=== PATIENT | male | born 1960 | race African-American/Black ===

== ENCOUNTER 2017-01-08 19:31 | Emergency (ER) | payer OTHER ==
[~2017-01-08] VITALS: Ht 167.6 cm; Wt 59.0 kg
[~2017-01-08 19:31] MED LIST: ACETAMINOP160 MG/54 PER TUBE; ACETAMINOPHEN160 MG; ALBUTEROL2.5 MG/31 INH; AMBIEN 10 MG TA10 MG PER TUBE; AMBIEN 5 MG TABL5 M1 PO; ASPIR 8181 MG; AUGMENTIN 500-1 EACH PER TUBE; BACLOFEN 10MG T10 MG PER TUBE; BAYER CHEWABLE81 MG PER TUBE; BELSOMRA5 MG PO; BENADRYL25 MG PER TUBE; CELEXA10 MG PER TUBE; CITALOPRAM10 MG/5 ML PER TUBE; CITRATE OF MAG296 ML PER TUBE; DEPAKENE250 MG/5 M PER TUBE; DILANTIN-1125 MG/5 M PER TUBE; DUONEB 2.5-0.5 M3 ML; ENOXAPARIN40 MG/0.1 SUBQ; FUROSEMIDE 20 M20 MG PER TUBE; FUROSEMIDE20 MG/2 ML IV PUSH; HYDROCORTISONE30 G9 TOP; JEVITY 1.5 PER TUBE; KEFLEX250 MG/5 M PER TUBE; KEPPRA 100100 MG/M1 PER TUBE; LEXAPRO5 MG PER TUBE; METAMUCIL PAC1 UDPKT PER TUBE; MIDODRINE HCL2.5 M1 PO; MIRALAX255 GM PER TUBE; OMEPRAZOLE40 MG PER TUBE; OSMOLITE; PAXIL10 MG; PERIDEX 0.12%473 M1 MUCOUS MEM; POLYETHYLENE G500 G3 PER TUBE; PRINIVIL10 MG PER TUBE; PROTONIX 440 MG/VIA2 IV PUSH; QUETIAPINE FUM100 MG; QUETIAPINE FUMA50 MG PER TUBE; ROBITUSSIN100 MG/53 PER TUBE; SILACE50 MG/5 ML PER TUBE; TRAZODONE HCL100 MG PER TUBE; VIMPAT50 MG PER TUBE
== END 2017-01-08 22:29 | disposition home or self-care (01) ==
LOC: ER 19:31
DX: K94.23 Gastrostomy malfunction (principal); F32.9 Major depressive disorder, single episode, unspecified; K21.9 Gastro-esophageal reflux disease without esophagitis; G40.909 Epilepsy, unspecified, not intractable, without status epilepticus; M86.9 Osteomyelitis, unspecified; Z86.73 Personal history of transient ischemic attack (TIA), and cerebral infarction without residual deficits; Z87.891 Personal history of nicotine dependence

== ENCOUNTER 2017-01-16 11:45 | Emergency (ER) | payer OTHER ==
[~2017-01-16] VITALS: Ht 172.7 cm; Wt 65.8 kg
== END 2017-01-16 14:38 | disposition home or self-care (01) ==
LOC: ER 11:45
DX: K94.23 Gastrostomy malfunction (principal); F32.9 Major depressive disorder, single episode, unspecified; K21.9 Gastro-esophageal reflux disease without esophagitis; Z86.73 Personal history of transient ischemic attack (TIA), and cerebral infarction without residual deficits; Z87.09 Personal history of other diseases of the respiratory system; F17.210 Nicotine dependence, cigarettes, uncomplicated

== ENCOUNTER 2017-06-16 13:24 | Emergency (ER) | payer OTHER ==
[~2017-06-16] VITALS: Ht 175.3 cm; Wt 68.0 kg
== END 2017-06-16 16:41 | disposition home or self-care (01) ==
LOC: ER 13:24
DX: T85.528A Displacement of other gastrointestinal prosthetic devices, implants and grafts, initial encounter (principal); Z93.1 Gastrostomy status; F32.9 Major depressive disorder, single episode, unspecified; K21.9 Gastro-esophageal reflux disease without esophagitis; M86.9 Osteomyelitis, unspecified; Z87.891 Personal history of nicotine dependence; Y83.9 Surgical procedure, unspecified as the cause of abnormal reaction of the patient, or of later complication, without mention of misadventure at the time of the procedure; Y92.89 Other specified places as the place of occurrence of the external cause

== ENCOUNTER 2017-07-09 13:23 | Emergency (ER) | payer OTHER ==
[~2017-07-09] VITALS: Ht 175.3 cm; Wt 65.8 kg
[2017-07-09] MEDS ORDERED: ASPIR 8181 MG PER TUBE (13:56)
[2017-07-09] MEDS ORDERED: DUONEB 2.5-0.5 M3 ML INH (13:58)
[2017-07-09] MEDS ORDERED: MIDODRINE HCL2.5 M1 PO (14:00)
[2017-07-09] MEDS ORDERED: TYLENOL325 MG PER TUBE (15:05)
[2017-07-09] MEDS ORDERED: ALBUTEROL2.5 MG/31 INH (15:07)
== END 2017-07-09 18:26 ==
LOC: ER 13:23
DX: J95.03 Malfunction of tracheostomy stoma (principal); F32.9 Major depressive disorder, single episode, unspecified; K21.9 Gastro-esophageal reflux disease without esophagitis; M86.9 Osteomyelitis, unspecified; Z86.73 Personal history of transient ischemic attack (TIA), and cerebral infarction without residual deficits; Z87.891 Personal history of nicotine dependence; Y83.9 Surgical procedure, unspecified as the cause of abnormal reaction of the patient, or of later complication, without mention of misadventure at the time of the procedure; Y92.89 Other specified places as the place of occurrence of the external cause

== ENCOUNTER 2017-10-31 12:09 | Emergency (ER) | payer OTHER ==
[~2017-10-31] VITALS: Ht 170.2 cm; Wt 79.4 kg
[~2017-10-31 12:09] MED LIST changes: +ASPIR 8181 MG PER TUBE; +DUONEB 2.5-0.5 M3 ML INH; +TYLENOL325 MG PER TUBE
[2017-10-31 12:41] LABS: ABSOLUTE NEUTROPHILS 8.6 thou/uL (1.4-8.2); BASOPHILS 0.5 % (0.0-2.0); EOSINOPHILS 0.2 % (0.0-3.0); HEMATOCRIT 38.7 % (42.0-52.0); HEMOGLOBIN 13.1 gm/dL (14.0-18.0); LYMPHOCYTES 5.9 % (24.0-44.0); MCH 31.9 pg (26.0-34.0); MCHC 33.8 g/dL (28.0-37.0); MCV 94.3 fL (80.0-100.0); MONOCYTES 6.3 % (1.0-8.0); PLATELET COUNT 258 thou/uL (150-400); POLYS 87.1 % (36.0-66.0); RDW 13.9 % (10.5-14.5); WBC 9.9 thou/uL (4.0-11.0)
[2017-10-31 12:50] LABS: ANION GAP 4 mmol/L (7-16); BUN 30 mg/dL (7-18); CALCIUM 9.5 mg/dL (8.5-10.1); CHLORIDE 102 mmol/L (98-107); CO2 33 mmol/L (21-32); CREATININE 0.6 mg/dL (0.7-1.3); GLUCOSE 125 mg/dL (74-106); POTASSIUM 4.3 mmol/L (3.5-5.1); SODIUM 139 mmol/L (136-145)
[2017-10-31 12:50] LABS: URINE BILIRUBIN NEGATIVE (Negative); URINE BLOOD TRACE (Negative); URINE CLARITY CLOUDY; URINE COLOR YELLOW; URINE GLUCOSE-RANDOM* NEGATIVE (Negative); URINE KETONES TRACE (Negative); URINE LEUKOCYTES 1+ (Negative); URINE NITRITE POSITIVE (Negative); URINE PROTEIN (DIPSTICK) 1+ (Negative); URINE SPECIFIC GRAVITY <= 1.005 (1.005-1.035); URINE UROBILINOGEN 0.2 E.U./dl (0.2-1.0)
[2017-10-31 13:02] LABS: CASTS None Seen /LPF (None Seen); CRYSTALS None Seen /LPF (None Seen); SQUAMOUS None Seen /LPF (0-3); URINE RBC 3-10 Few /HPF (0-2); URINE WBC 0-5 Rare /HPF (0-5)
[2017-10-31 13:03] LABS: AMORPHOUS PHOSPHATES Many /LPF (None Seen); CALCIUM OXALATE >10 Many /LPF (None Seen)
[2017-10-31 13:04] LABS: ALBUMIN 2.8 g/dL (3.4-5.0); DIRECT BILIRUBIN < 0.1 mg/dL (<0.1-0.3); LIPASE 83 U/L (73-393); SGOT 24 U/L (15-37); SGPT 38 U/L (30-65); TOTAL BILIRUBIN 0.2 mg/dL (<0.1-1.0); TOTAL PROTEIN 7.2 g/dL (6.4-8.2)
[2017-10-31 13:05] LABS: BE(vivo) 4.9 mmol/L (-2 to +3); PCO2 52.4 mmHg (35.0-45.0); sO2 97.4 % (92.0-98.0)
[2017-10-31 17:09] VITALS: BP 125/63
== END 2017-10-31 17:11 ==
LOC: ER 12:09
PROVIDERS: Nurse Practitioner
DX: K59.00 Constipation, unspecified (principal); R05 Cough; F32.9 Major depressive disorder, single episode, unspecified; K21.9 Gastro-esophageal reflux disease without esophagitis; G40.909 Epilepsy, unspecified, not intractable, without status epilepticus; Z87.891 Personal history of nicotine dependence

== ENCOUNTER 2018-04-02 06:04 | Emergency (ER) | payer OTHER ==
[~2018-04-02] VITALS: Ht 170.2 cm; Wt 79.4 kg
[2018-04-02] MEDS ORDERED: VALPROIC A500 MG/10 PER TUBE (06:17)
[2018-04-02] MEDS ORDERED: MILK OF MA2400 MG/10 PER TUBE (06:19)
== END 2018-04-02 08:10 | disposition home or self-care (01) ==
LOC: ER 06:04
DX: J95.09 Other tracheostomy complication (principal); F32.9 Major depressive disorder, single episode, unspecified; K21.9 Gastro-esophageal reflux disease without esophagitis; I63.9 Cerebral infarction, unspecified; M86.9 Osteomyelitis, unspecified; Z87.891 Personal history of nicotine dependence

== ENCOUNTER 2018-05-12 02:21 | Inpatient (IN) | payer OTHER ==
[2018-05-12] VITALS (25 sets, daily range): BP systolic 107–202; BP diastolic 64–112
[~2018-05-12] VITALS: Ht 182.9 cm; Wt 82.7 kg
--- NOTE | ~2018-05-12 | EKG ---
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: FARHAT : 1960 Requested By: Kina Branham Order Number: [id number] MD: Mario Amado Measurements Intervals [place] Rate: 82 P: 48 ME: 177 QRS: 16 QRSD: 84 T: 39 QT: 356 QTc: 416 Interpretive Statements Sinus rhythm Poor R wave progression Compared to ECG 09/13/2016 11:20:56 Repolarization abnormality is less prominent Electronically Signed On 05-13-2018 8:39:16 CDT by Mario Amado [email or web address] <ELECTRONICALLY SIGNED> By: Mario Amado MD, [facility] 05/13/18 0839 1 Mario Amado MD, [facility] /EPI
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
--- NOTE | ~2018-05-12 | O ---
[facility] [place] [address] [place] [address] OPERATIVE REPORT Name: JULIAN MUÑIZ Room #: 245-P ADM IN M.R.#: [id number] Admission: 05/12/18 Attend Phys: Rowdy Pruitt Discharge: Date of : 64 Report #: [id number] THIS REPORT FOR: //name// CC: FAM unknown Rowdy Pruitt Diana Black DATE OF SERVICE: 05/14/2018 TYPE OF PROCEDURE: Diagnostic bronchoscopy. CLINICAL HISTORY: A 57-year-old quadriplegic patient now with difficulty ventilating. Peak air pressures are high. Suspicion for possible mucus plugging. A diagnostic bronchoscopy was performed. DESCRIPTION OF PROCEDURE: Following obtaining consent and risks and benefits being explained to the patient, which include infection, bleeding, pneumothorax, procedure performed in the ICU room. The patient received 2 mg of Versed. Topical lidocaine jelly was used for local anesthetic. He also received aerosolized lidocaine therapy. Of note, the patient has a Shiley #4 trach. Therefore, the bronchoscopy was performed to the upper airway. A flexible fiberoptic bronchoscope was then introduced to the left naris without difficulty. The vocal cords and epiglottis were normal. Proximal trachea was unremarkable. The previously placed tracheostomy tube is in place. I was able to pass the bronchoscope distally without difficulty passing the tracheostomy tube. Distal trachea was normal, ayo was normal. Left mainstem bronchus, left upper lobe and left lower lobe were unremarkable. Right mainstem bronchus, right upper lobe, right middle lobe and right lower lobe were unremarkable. No evidence of mucus plugging seen. No significant secretions noted. The patient tolerated procedure well. No complications. Vital signs and saturation throughout the study were within normal range. No specimens were obtained. No washing was obtained. <ELECTRONICALLY SIGNED> By: Jcarlos Arango MD 05/15/18 1656 0831 0917 Jcarlos Arango MD /nt
--- NOTE | ~2018-05-12 | HC ---
[facility] [address] [place] [address] CONSULTATION Name: JULIAN MUÑIZ Room #: 245-P ADM IN M.R.#: [id number] Admission: 05/12/18 Attend Phys: Rowdy Pruitt Discharge: Date of : 64 Report #: [id number] THIS REPORT FOR: //name// CC: FAM unknown Ish Saldana Diana Black DATE OF SERVICE: 05/12/2018 Infectious Disease Consultation ATTENDING PHYSICIAN: Ish Saldana MD REASON FOR CONSULTATION: Antibiotic management. HISTORY OF PRESENT ILLNESS: The patient is a 57-year-old -Congolese man known to me from previous hospitalization at [facility]. He is admitted with fever of 104 and hypoxemia and possible pneumonia. He receives vancomycin, Zosyn and Levaquin. The patient has chronic tracheostomy and unresponsive currently and unable to provide any information. All information on this patient is gathered from the review of records. PAST MEDICAL HISTORY: C5-C6 quadriplegia. Chronic tracheostomy. Percutaneous gastrostomy. Ileal conduit. Neurogenic bladder. Gastroesophageal reflux. Seizure disorder. Decubitus ulceration, left leg and right thigh. DRUG ALLERGIES: None listed. MEDICATIONS: The patient is currently on treatment with vancomycin 1250 mg IV every 12 hours, levetiracetam per feeding tube, famotidine, subcutaneous heparin, Zosyn 3.375 grams IV every 8 hours, methylprednisolone 40 mg q.i.d. push acetaminophen 500 mg per feeding tube q. 4h p.r.n., glucose Glucagon p.r.n., pressors as needed, Levaquin 750 mg IV single dose. PHYSICAL EXAMINATION: GENERAL: This is a chronically ill-appearing man quit with tracheostomy and ventilator. VITAL SIGNS: Temperature 104, pulse 94, respirations 18, BP 115/65, O2 saturation is 99% on FIO2 of 50%. HEENT: Head normocephalic, atraumatic. Pupils equal. Mouth, unable to examine. NECK: Tracheostomy in place. LUNGS: Few basilar crackles. HEART: S1, S2. No gallop. ABDOMEN: Percutaneous gastrostomy and ileal conduit. Urine mildly turbid. GENITOURINARY AND RECTAL: Deferred. [facility] [address] [place] [address] CONSULTATION Name: JULIAN MUÑIZ Room #: [address] [place] [address] [place] [facility].#: [id number] Admission: 05/12/18 Attend Phys: Rowdy Pruitt Discharge: Date of : 64 Report #: [id number] EXTREMITIES: Decubitus ulceration, left pretibial area and right posterior thigh. NEUROLOGIC: Unable to evaluate, but the patient is quadriplegic. LABORATORY DATA: Revealed the following abnormals: Potassium 3.3, BUN 25, glucose 157, albumin 2.7 g/dL. D-dimer is 1.79. WBC 5000, hemoglobin 12.3, platelets 203,000. Urinalysis pending. ABGs: pH 7.45, pCO2 39, pO2 105, bicarbonate 26.9, lactate elevated 2.91. O2 saturation 98%. is on FiO2 of 50%, tidal volume 500, 5 of PEEP. RADIOLOGY EVALUATION: A chest x-ray revealed tracheostomy, small left pleural effusion, and some infiltrate left base. ASSESSMENT: 1. Severe sepsis. 2. Possible healthcare-associated pneumonia. 3. Rule out urinary tract infection. 4. Malnutrition. 5. Quadriplegia. 6. Seizure disorder. SUGGESTIONS: Recommend continue treatment with vancomycin and Zosyn at current dosing. Decrease dose of steroids. Continue the patient on Levaquin [address] Saldana, thank you for requesting my suggestions in the care of your patient. <ELECTRONICALLY SIGNED> By: Felix Kern MD 05/13/18 0947 0727 [id number] Felix Kern MD /nt
[~2018-05-12 02:21] MED LIST changes: +MILK OF MA2400 MG/10 PER TUBE; +VALPROIC A500 MG/10 PER TUBE
[2018-05-12 03:03] LABS: ABSOLUTE NEUTROPHILS 3.8 thou/uL (1.4-8.2); BASOPHILS 0.5 % (0.0-2.0); EOSINOPHILS 0.9 % (0.0-3.0); HEMATOCRIT 35.9 % (42.0-52.0); HEMOGLOBIN 12.3 gm/dL (14.0-18.0); LYMPHOCYTES 14.6 % (24.0-44.0); MCH 32.8 pg (26.0-34.0); MCHC 34.2 g/dL (28.0-37.0); MCV 95.8 fL (80.0-100.0); MONOCYTES 6.7 % (1.0-8.0); PLATELET COUNT 203 thou/uL (150-400); POLYS 77.3 % (36.0-66.0); RBC 3.75 mil/uL (4.50-6.00); RDW 14.5 % (10.5-14.5)
[2018-05-12 03:08] LABS: BE(vivo) 2.9 mmol/L (-2 to +3); HCO3 26.9 mmol/L (22.0-26.0); PCO2 39.2 mmHg (35.0-45.0); PO2 105.5 mmHg (80.0-100.0); pH 7.454 (7.360-7.450); sO2 98.1 % (92.0-98.0)
[2018-05-12 03:17] LABS: CALCIUM 8.6 mg/dL (8.5-10.1); CREATININE 1.1 mg/dL (0.7-1.3); POTASSIUM 3.3 mmol/L (3.5-5.1)
[2018-05-12 04:01] LABS: ALBUMIN 2.7 g/dL (3.4-5.0); DIRECT BILIRUBIN < 0.1 mg/dL (<0.1-0.3); SGOT 21 U/L (15-37); SGPT 20 U/L (30-65); TOTAL BILIRUBIN 0.2 mg/dL (<0.1-1.0); TOTAL PROTEIN 6.8 g/dL (6.4-8.2)
[2018-05-12 22:09] LABS: URINE BILIRUBIN NEGATIVE (Negative); URINE BLOOD 1+ (Negative); URINE CLARITY CLEAR; URINE COLOR YELLOW; URINE GLUCOSE-RANDOM* NEGATIVE (Negative); URINE KETONES NEGATIVE (Negative); URINE LEUKOCYTES NEGATIVE (Negative); URINE NITRITE NEGATIVE (Negative); URINE PROTEIN (DIPSTICK) 1+ (Negative); URINE SPECIFIC GRAVITY 1.015 (1.005-1.035); URINE UROBILINOGEN 0.2 E.U./dl (0.2-1.0)
[2018-05-12 22:24] LABS: BACTERIA 1-9 Few /HPF (None Seen); CASTS None Seen /LPF (None Seen); CRYSTALS None Seen /LPF (None Seen); MUCUS 0-3 Light strn/LPF (None Seen); SQUAMOUS None Seen /LPF (0-3); URINE RBC 3-10 Few /HPF (0-2); URINE WBC 0-5 Rare /HPF (0-5)
[2018-05-12 22:25] LABS: AMORPHOUS PHOSPHATES Few /LPF (None Seen)
[2018-05-13] VITALS (19 sets, daily range): BP systolic 106–189; BP diastolic 66–112
[2018-05-13 03:31] LABS: CALCIUM 7.8 mg/dL (8.5-10.1); CREATININE 0.8 mg/dL (0.7-1.3); MAGNESIUM 1.8 mg/dL (1.8-2.4); POTASSIUM 3.2 mmol/L (3.5-5.1)
[2018-05-13 03:34] LABS: BASOPHILS 0.4 % (0.0-2.0); HEMATOCRIT 36.4 % (42.0-52.0); HEMOGLOBIN 12.6 gm/dL (14.0-18.0); LYMPHOCYTES 6.3 % (24.0-44.0); MCH 32.7 pg (26.0-34.0); MCHC 34.4 g/dL (28.0-37.0); MONOCYTES 5.2 % (1.0-8.0); PLATELET COUNT 174 thou/uL (150-400); POLYS 88.1 % (36.0-66.0); RBC 3.84 mil/uL (4.50-6.00); WBC 9.1 thou/uL (4.0-11.0)
[2018-05-13 10:01] LABS: CALCIUM 8.1 mg/dL (8.5-10.1); CREATININE 0.8 mg/dL (0.7-1.3)
[2018-05-13 10:04] LABS: POTASSIUM 4.4 mmol/L (3.5-5.1)
[2018-05-14] VITALS (16 sets, daily range): BP systolic 103–178; BP diastolic 65–136
[2018-05-14 05:21] LABS: CALCIUM 7.8 mg/dL (8.5-10.1); CREATININE 0.7 mg/dL (0.7-1.3); POTASSIUM 3.6 mmol/L (3.5-5.1)
[2018-05-14 05:26] LABS: ABSOLUTE NEUTROPHILS 6.6 thou/uL (1.4-8.2); BASOPHILS 0.1 % (0.0-2.0); HEMATOCRIT 34.1 % (42.0-52.0); HEMOGLOBIN 11.6 gm/dL (14.0-18.0); LYMPHOCYTES 9.5 % (24.0-44.0); MCH 32.5 pg (26.0-34.0); MCV 95.4 fL (80.0-100.0); MONOCYTES 6.3 % (1.0-8.0); PLATELET COUNT 180 thou/uL (150-400); POLYS 84.1 % (36.0-66.0); RBC 3.58 mil/uL (4.50-6.00); RDW 14.7 % (10.5-14.5); WBC 7.9 thou/uL (4.0-11.0)
[2018-05-15] VITALS (21 sets, daily range): BP systolic 102–192; BP diastolic 60–121
[2018-05-15 05:49] LABS: CALCIUM 8.3 mg/dL (8.5-10.1)
[2018-05-15 05:52] LABS: HEMATOCRIT 35.7 % (42.0-52.0); HEMOGLOBIN 12.1 gm/dL (14.0-18.0); MCH 32.6 pg (26.0-34.0); RBC 3.72 mil/uL (4.50-6.00); RDW 14.6 % (10.5-14.5); WBC 6.8 thou/uL (4.0-11.0)
[2018-05-16] VITALS (11 sets, daily range): BP systolic 94–244; BP diastolic 55–168
[2018-05-16 08:06] LABS: CALCIUM 8.4 mg/dL (8.5-10.1)
[2018-05-16 08:09] LABS: POTASSIUM 2.9 mmol/L (3.5-5.1)
[2018-05-16] MEDS ORDERED: ZOSYN 3.3753.375 GM IV (11:27)
[2018-05-16] MEDS ORDERED: CARDIZEM30 MG PER TUBE (11:28)
[2018-05-16] MEDS ORDERED: VANCOMYCIN1.25 GM/22 IV (11:28)
== END 2018-05-16 13:15 | DRG 870 ==
LOC: ER 02:21 → ICU 04:17 → EROBS 04:17 → ICU 05:44
PROVIDERS: Emergency Medicine; Internal Medicine; Internal Medicine Pulmonary Disease; Nurse Practitioner
DX: A41.9 Sepsis, unspecified organism (principal); J18.9 Pneumonia, unspecified organism; R65.21 Severe sepsis with septic shock; G82.50 Quadriplegia, unspecified; J96.21 Acute and chronic respiratory failure with hypoxia; E46 Unspecified protein-calorie malnutrition; J95.03 Malfunction of tracheostomy stoma; G82.20 Paraplegia, unspecified; Z99.11 Dependence on respirator [ventilator] status; F32.9 Major depressive disorder, single episode, unspecified; G47.00 Insomnia, unspecified; K21.9 Gastro-esophageal reflux disease without esophagitis; G40.909 Epilepsy, unspecified, not intractable, without status epilepticus; Y83.8 Other surgical procedures as the cause of abnormal reaction of the patient, or of later complication, without mention of misadventure at the time of the procedure; E87.6 Hypokalemia; N31.9 Neuromuscular dysfunction of bladder, unspecified; F45.8 Other somatoform disorders; T17.990A Other foreign object in respiratory tract, part unspecified in causing asphyxiation, initial encounter; L89.899 Pressure ulcer of other site, unspecified stage; Z87.828 Personal history of other (healed) physical injury and trauma; Z86.73 Personal history of transient ischemic attack (TIA), and cerebral infarction without residual deficits; Z87.891 Personal history of nicotine dependence; Z68.24 Body mass index [BMI] 24.0-24.9, adult; Z79.82 Long term (current) use of aspirin; Z79.899 Other long term (current) drug therapy; Z82.0 Family history of epilepsy and other diseases of the nervous system; X58.XXXA Exposure to other specified factors, initial encounter; Y93.89 Activity, other specified; Y92.89 Other specified places as the place of occurrence of the external cause; Y99.8 Other external cause status
CPT/HCPCS: 10078; 27000; 50101; 50386; 50403; 50517; 56525; 62110; 62900; 65131

== ENCOUNTER 2018-10-22 08:53 | Inpatient (IN) | payer OTHER ==
[~2018-10-22] VITALS: Ht 170.2 cm; Wt 93.1 kg
[2018-10-22] VITALS (41 sets, daily range): BP systolic 70–186; BP diastolic 32–106
[~2018-10-22 08:53] MED LIST changes: +CARDIZEM30 MG PER TUBE; +VANCOMYCIN1.25 GM/22 IV; +ZOSYN 3.3753.375 GM IV
[2018-10-22 09:30] LABS: ABSOLUTE NEUTROPHILS 7.1 thou/uL (1.4-8.2); BASOPHILS 0.3 % (0.0-2.0); HEMATOCRIT 41.3 % (42.0-52.0); HEMOGLOBIN 13.9 gm/dL (14.0-18.0); MCH 31.4 pg (26.0-34.0); MCHC 33.8 g/dL (28.0-37.0); MCV 93.1 fL (80.0-100.0); MONOCYTES 6.4 % (1.0-8.0); PLATELET COUNT 304 thou/uL (150-400); POLYS 83.3 % (36.0-66.0); RBC 4.43 mil/uL (4.50-6.00); RDW 13.9 % (10.5-14.5); WBC 8.5 thou/uL (4.0-11.0)
[2018-10-22 09:41] LABS: APTT 28.8 Seconds (24.5-32.8); CALCIUM 9.6 mg/dL (8.5-10.1); POTASSIUM 3.7 mmol/L (3.5-5.1)
[2018-10-22 14:14] LABS: HEMATOCRIT 35.8 % (42.0-52.0); HEMOGLOBIN 12.1 gm/dL (14.0-18.0)
--- NOTE | 2018-10-22 16:00 | NUR ---
DR. CALIX CALLED RE HYPOTENSION, STOOLING. GENERAL UPDATE GIVEN. ORDERS GIVEN. WILL START LEVOPHED AND KEEP MAP >60. UNABLE TO SEND CDIFF DUE TO YES ANSWERS ON [facility]ARE.
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
--- NOTE | 2018-10-22 18:33 | NUR ---
END OF SHIFT NOTE. PT ADMITTED TO ICU S/P UPPER GI BLEED. POSSIBLE ASPIRATION. PT IS QUAD. WOUND PHOTO TAKEN. LARGE BM X 2 SEMI FORMED. COARSE BS. SUCTIONED FREQUENTLY. PT NON VERBAL CONSENT FOR EGD AND BLOOD SIGNED.
--- NOTE | 2018-10-22 19:06 | NUR ---
DR. CALIX CALLED RE PT INCREASED SECTRIONS AND IS NOT ON ANY ANTIBIOTICS OR RT TREATMENTS. ORDERS GIVEN. DR. DOWNS CONSULTED.
[2018-10-22 19:16] LABS: HCO3 31.9 mmol/L (22.0-26.0); PO2 106.7 mmHg (80.0-100.0)
[2018-10-22 19:18] LABS: PCO2 71.4 mmHg (35.0-45.0)
[2018-10-22 19:19] LABS: pH 7.268 (7.360-7.450)
[2018-10-22 22:26] LABS: HEMATOCRIT 35.6 % (42.0-52.0); HEMOGLOBIN 11.9 gm/dL (14.0-18.0)
[2018-10-22 22:47] LABS: BE(vivo) 4.4 mmol/L (-2 to +3); HCO3 33.2 mmol/L (22.0-26.0); PCO2 71.8 mmHg (35.0-45.0); PO2 101.6 mmHg (80.0-100.0); sO2 96.7 % (92.0-98.0)
[2018-10-22 22:48] LABS: pH 7.283 (7.360-7.450)
--- NOTE | 2018-10-22 23:31 | NUR ---
GCS 11. OPENS EYES SPONTANEOUSLY. MOSTLY NONVERBAL. NODS/SHAKES HEAD, OCCASSIONALLY MOUTHS WORDS. RUE GROSS MOTOR MOVEMENT. RLE CONTRACTED. DECREASED ROM IN ALL EXTREMITIES. FOLLOWS COMMANDS ABLE. DENIES PAIN. SINUS RHYTHM ON MONITOR. TRACH PRESENT ON ADMISSION. T TUBE AT 50% UNTIL 2300. PT THEN PLACED ON BIPAP. PT HAS LARGE VOLUME THICK WHITE SPUTUM, REQUIRING FREQUENT SUCTION. PT NPO. PEG TUBE NOT IN USE. MULTIPLE LARGE, SEMI-LIQUID BOWEL MOVEMENTS. UROSTOMY PRESENT ON ADMIT. CLEAR, DARK YELLOW URINE. PARTIALLY HEALED WOUNDS TO LEFT INNER THIGH AND LEFT LOWER LEG. WOUND CARE CONSULTED. VITAL SIGNS AND ASSESSMENTS DOCUMENTED. WILL CONTINUE TO MONITOR.
[2018-10-23] VITALS (106 sets, daily range): BP systolic 57–178; BP diastolic 28–95
[2018-10-23 04:49] LABS: HEMATOCRIT 33.1 % (42.0-52.0); HEMOGLOBIN 10.9 gm/dL (14.0-18.0); MCH 31.2 pg (26.0-34.0); MCHC 32.8 g/dL (28.0-37.0); MCV 95.1 fL (80.0-100.0); RBC 3.48 mil/uL (4.50-6.00); RDW 13.6 % (10.5-14.5); WBC 10.4 thou/uL (4.0-11.0)
[2018-10-23 04:51] LABS: CALCIUM 7.7 mg/dL (8.5-10.1); CREATININE 0.6 mg/dL (0.7-1.3); POTASSIUM 3.6 mmol/L (3.5-5.1)
[2018-10-23 05:44] LABS: BE(vivo) 3.4 mmol/L (-2 to +3); HCO3 32.3 mmol/L (22.0-26.0); PO2 95.9 mmHg (80.0-100.0)
[2018-10-23 05:45] LABS: pH 7.264 (7.360-7.450)
--- NOTE | 2018-10-23 09:11 | NUR ---
When able to resume enteral nutrition recommend Vital AF 1.2 goal of 65ml/hr.
[2018-10-23 10:46] LABS: CLARITY TURBID; COLOR STRAW; SOURCE BRONCH WASH; TOTAL VOLUME 10 mL
--- NOTE | 2018-10-23 10:59 | NUR ---
WOUND CARE ASSESSMENT; HEAD TO TOE ASSESSMENT;-1 A WOUND IDENTIFIED TO THE GLUTEAL CLEFT ; A LINIEAR FISSURE, NO DRAINAGE NOTED, NO S/S OF INFECTION. 2- ANOTHER LINIEAR FISSURE TO THE LEFT INNER THIGH WITH NO VISABLE DRAINAGE OR S/S OF INFECTION. NO OTHER AREAS OF CONCERN. RECOMMENDATIONS; APPLY BARRIER CREAM DAILY/PRN RN PRESENT
[2018-10-23 12:53] LABS: BF NUCLEATED CELLS 31510; BF RBC 14077
--- NOTE | 2018-10-23 13:49 | NUR ---
PT. CURRENTLY RESIDES AT [facility] FAXED CLINICAL UPDATE TO FACILITY AND SPOKE WITH WAGNER IN ADM. SHE RECEIVED UPDATE. DCP TO FOLLOW.
[2018-10-23 16:27] LABS: HCO3 25.7 mmol/L (22.0-26.0); PCO2 52.1 mmHg (35.0-45.0); PO2 73.5 mmHg (80.0-100.0); sO2 93.3 % (92.0-98.0)
[2018-10-23 16:28] LABS: pH 7.311 (7.360-7.450)
--- NOTE | 2018-10-23 18:23 | NUR ---
PT HAS SHAHLA, DR. DOWNS INFORMED. AWAITING ORDERS.
--- NOTE | 2018-10-23 18:25 | NUR ---
END OF S HIFT NOTE. PT HAD BRONCH WITH TRACH EXCHANGE THIS AM. EGD IN AFTERNOON WITH NEW PEG. TUBE FEEDINGS STARTED. LEVOPHED WEANED OFF. REMAINS ON PROTONIX GTT.
[2018-10-23 19:46] LABS: BF MACROPHAGE 0; BF NEUTROPHILS 93
--- NOTE | 2018-10-23 22:17 | P ---
[facility] [address] [place] [address] PROCEDURE REPORT Name: JULIAN MUÑIZ Room #: 243-P [facility] IN M.R.#: [id number] Admission: 10/22/18 Attend Phys: Demetrio Wallace MD Discharge: Date of : 64 Report #: [id number] THIS REPORT FOR: //name// CC: Demetrio Wallace MD [facility] DATE OF SERVICE: 10/23/2018 NAME OF PROCEDURE: EGD with PEG removal and new PEG placement. He is a patient of Dr. Demetrio Wallace. INDICATION FOR PROCEDURE: The patient has a balloon PEG tube that was a replacement PEG that had been placed. The balloon, it was blown up in the duodenum causing a small-bowel obstruction and we are replacing the balloon tube with a regular PEG tube, so that there is no danger of small-bowel obstruction from the PEG tube. Informed consent for this procedure was obtained prior to the administration of any medication. The risks of the procedure, which include bleeding, perforation, infection, complications of sedation and the possibility I could miss something have been explained to the patient and DPOA and consent was obtained. The risks include bleeding, perforation, infection, complications of sedation and the possibility I could miss something, although this is certainly a limited list of complications. Conscious sedation was provided with fentanyl 50 mcg and 4 mg of Versed slowly given before and during this procedure. DESCRIPTION OF PROCEDURE: The Olympus upper videoscope was introduced through the upper esophageal sphincter and advanced under direct visualization to the third portion of the duodenum. Findings were noted on withdrawal of the scope. The visualized portions of the duodenum appeared normal. Pylorus, normal mucosa. In the antrum of the stomach, there was a large balloon PEG tube seen on the anterior wall of the stomach. The antrum itself appeared normal except for two small red dots in the prepyloric area. Body, normal mucosa. Cardia and fundus, normal mucosa. Retroflex view did not reveal any abnormalities. The scope was withdrawn up into the esophagus. There was a severely ulcerated esophagus noted. Then, the scope was advanced down into the stomach again. The balloon was deflated on the PEG tube and the old PEG tube was removed manually. Then, a guidewire was advanced through the previous PEG tube ostomy site and grasped endoscopically with a snare and pulled up through the patient's mouth. Then, a #20 PEG was tied onto the guidewire and the PEG was pulled down through the patient's mouth, esophagus and stomach and out through the anterior gastric and anterior abdominal wall and anchored into position. Then, the appropriate [facility] [address] [place] [address] PROCEDURE REPORT Name: JULIAN MUÑIZ Room #: [facility] IN M.R.#: [id number] Admission: 10/22/18 Attend Phys: Demetrio Wallace MD Discharge: Date of : 64 Report #: [id number] bumpers externally were placed and a clip on the tube to stop the flow of tube feeding or gastric contents if needed. Then, the Olympus upper videoscope was reintroduced through the upper esophageal sphincter and advanced down to the stomach again. The PEG bumper was seen in appropriate position on the antral wall. It was not bleeding. There was no external or internal blood loss. The scope was then withdrawn. The patient went to the recovery area in stable condition. He tolerated the procedure well. IMPRESSION: 1. Successful replacement of an old balloon PEG with a bumper PEG as above. 2. Severe ulcerative esophagitis. RECOMMENDATIONS: For him to continue the proton pump inhibitors IV for now. We will start tube feedings at approximately 30 mL an hour, Jevity 1.5 and wait for the dietitian to make recommendations about his feedings tomorrow. Thank you very much once again for allowing me to participate in his care, Dr. Wallace. <ELECTRONICALLY SIGNED> By: Isha Lindo DO 10/23/18 2217 1534 1551 Isha Lindo DO /nt
[2018-10-24] VITALS (45 sets, daily range): BP systolic 90–130; BP diastolic 39–75
[2018-10-24] MEDS ORDERED: CELEXA10 MG PO (00:41)
--- NOTE | 2018-10-24 02:37 | NUR ---
ASSUMED CARE OF PT AT 2315. PT DROWSY DURING INITIAL ASSESSMENT, BUT WHEN THE PT IS TOUCHED, HE HAS SPASMS. AFTER BEING REPOSITIONED, PT CONTINUED TO HAVE SPASMS AND APPEARED TO BE IN PAIN (VERY TENSE, GRIMACING, INCREASED RR). GIVEN MORPHINE X1. SPOKE WITH FLAKO REDD NP ABOUT RESTARTING PT'S HOME MEDS, WHICH INCLUDE BACLOFEN, KEPRA, AND VALPROATE. MORPHINE HELPED SOME, BUT PT IS STILL TENSE AND HAS SPASMS INTERMITTENTLY. WILL CONTINUE TO MONITOR.
[2018-10-24 05:57] LABS: ABSOLUTE NEUTROPHILS 4.9 thou/uL (1.4-8.2); BASOPHILS 0.3 % (0.0-2.0); EOSINOPHILS 3.1 % (0.0-3.0); HEMATOCRIT 30.3 % (42.0-52.0); HEMOGLOBIN 10.2 gm/dL (14.0-18.0); LYMPHOCYTES 13.3 % (24.0-44.0); MCHC 33.6 g/dL (28.0-37.0); MCV 95.3 fL (80.0-100.0); PLATELET COUNT 192 thou/uL (150-400); POLYS 74.3 % (36.0-66.0); RBC 3.18 mil/uL (4.50-6.00); RDW 14.4 % (10.5-14.5); WBC 6.6 thou/uL (4.0-11.0)
[2018-10-24 06:12] LABS: CALCIUM 8.1 mg/dL (8.5-10.1); CREATININE 0.7 mg/dL (0.7-1.3); POTASSIUM 3.5 mmol/L (3.5-5.1)
[2018-10-24 08:23] LABS: BE(vivo) -0.2 mmol/L (-2 to +3); HCO3 27.4 mmol/L (22.0-26.0); PO2 139.7 mmHg (80.0-100.0); pH 7.284 (7.360-7.450); sO2 98.4 % (92.0-98.0)
--- NOTE | 2018-10-24 15:40 | NUR ---
CM ASSESSMENT: CASE OPENED FOR DC PLANNING. CLINICAL INFO REVIEWED. PT ADMITS FROM LTC AT [facility] WITH UGI BLEED AND RESP FAILURE. HX OF QUAD AND ESTABLISHED TRACH. CURRENTLY ON BIPAP AVAPS MODE. PEG REPLACED BY GI. SPOKE WITH PT'S MOM ALEXANDRO BY PHONE. DISCUUSED POSSIBLE LTAC STAY AND SHE IS AGREEABLE IF THAT IS RECOMMENDATION AND CHOOSES [facility] (PT HAD [facility] 04/2018). ALEXANDRO'S INTENDS PT TO ULTIMATELY RETURN TO LTC FACILITY WHEN MEDICALLY STABLE. DC PLANNED FAXED UPDATED AND SPOKE STEPHANIE EDWARD IN ADMISSIONS AT [facility].
--- NOTE | 2018-10-24 18:23 | NUR ---
PT DROWSY TODAY. WILL OPEN EYES TO COMMAND, NOD TO YES/NO QUESTIONS, AND MOUTH WORDS TO COMMUNICATE. TOLERATING TUBE FEEDING WELL WITH MINIMAL RESIDUAL. VSS. ABG'S DRAWN THIS AM AND RESULTS GIVEN TO DR DOWNS. REMAINS ON AVAP PER TRACH. LUNGS VERY COARSE. SUCTIONING MODERATE AMOUNT OF THICK BURGER SPUTUM FROM TRACH. PROTONIX GTT DISCONTINUED TODAY AND STARTED ON PPI PER TUBE. COMPLAINING OF HEADACHE THIS AM. GIVEN TYLENOL WITH COMPLETE RELIEF OF PAIN. TURNED Q2H. ORAL CARE DONE Q2 H. SPOKE WITH PT'S MOTHER AND UPDATED HER THIS AM. WILL CONTINUE TO MONITOR PATIENT.
[2018-10-25] VITALS (50 sets, daily range): BP systolic 94–184; BP diastolic 42–109
[2018-10-25 05:26] LABS: BE(vivo) -0.1 mmol/L (-2 to +3); HCO3 26.1 mmol/L (22.0-26.0); PCO2 49.2 mmHg (35.0-45.0); PO2 42.9 mmHg (80.0-100.0); pH 7.342 (7.360-7.450); sO2 75.4 % (92.0-98.0)
[2018-10-25 05:34] LABS: ABSOLUTE NEUTROPHILS 3.7 thou/uL (1.4-8.2); BASOPHILS 0.4 % (0.0-2.0); EOSINOPHILS 4.8 % (0.0-3.0); HEMATOCRIT 28.1 % (42.0-52.0); HEMOGLOBIN 9.4 gm/dL (14.0-18.0); LYMPHOCYTES 21.2 % (24.0-44.0); MCH 31.7 pg (26.0-34.0); MCHC 33.5 g/dL (28.0-37.0); MCV 94.6 fL (80.0-100.0); MONOCYTES 9.1 % (1.0-8.0); PLATELET COUNT 192 thou/uL (150-400); POLYS 64.5 % (36.0-66.0); RBC 2.97 mil/uL (4.50-6.00); RDW 14.3 % (10.5-14.5); WBC 5.7 thou/uL (4.0-11.0)
[2018-10-25 05:58] LABS: CALCIUM 7.9 mg/dL (8.5-10.1); CREATININE 0.6 mg/dL (0.7-1.3); POTASSIUM 3.3 mmol/L (3.5-5.1)
--- NOTE | 2018-10-25 07:00 | NUR ---
ASSUMED CARE OF PT AT 1900. PT AWAKE, BUT DROWSY. DENIES PAIN, BUT C/O ITCHING ON RIGHT SIDE OF NECK BY CENTRAL LINE. ORDER FOR BENADRYL OBTAINED FROM FLAKO REDD NP. BENADRYL GIVEN X1. UPON INITIAL ASSESSMENT, PT'S ABD APPEARED TO BE MORE DISTENDED AND FIRM THAN THE PRIOR NIGHT. TUBE FEEDING WAS STOPPED AT THAT TIME. PT DENIED ABD PAIN AND NAUSEA. WHEN REASSESSED AT KS, PT'S ABD APPEARED SOMEWHAT IMPROVED, YET STILL DISTENDED. BOWEL SOUNDS WERE HYPERACTIVE AT THAT TIME AND PT WAS PASSING FLATUS. TF RESTARTED. WHEN REPOSITIONING THE PT AT 0200, PT'S ABD APPEARED MORE DISTENDED-SIMILAR TO FIRST ASSESSMENT. TF WAS STOPPED AGAIN. DR. DOWNS WAS IN THE ICU AND WAS NOTIFIED OF THE DISTENTION AND WAS ASKED TO ORDER A KUB. A KUB AND CXR WERE ORDERED. THERE WAS ALSO A CONCERN OF SUBQ AIR IN LOWER LEFT SIDE OF NECK, BUT CXR REPORT DID NOT MENTION ANY SUBQ AIR. THE KUB SHOWED NO OBSTRUCTION. PT STILL DENIED ABD PAIN AND NAUSEA. TF RESUMED AT 0630. 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 ALL THIS WAS COMMUNICATED TO THE DAYSHIFT RN SO THAT IT COULD BE LOOKED INTO FURTHER. CXR ALSO REVEALED THAT THE CENTRAL LINE WAS OUT OF PLACE AND REQUIRES REPOSITIONING. MESSAGE LEFT WITH IV TEAM REGARDING THIS. ASSESSMENTS AND VITALS DOCUMENTED. WILL CONTINUE TO MONITOR.
--- NOTE | 2018-10-25 08:00 | NUR ---
PT ABD VERY FIRM, TUBE FEEDING STOPPED. PT MADE NPO. DR. JUANITA MAYA.
--- NOTE | 2018-10-25 09:16 | NUR ---
PAGED DR. GRANT AGAIN.
--- NOTE | 2018-10-25 11:11 | PATH ---
[facility] [address] [place] [address] PATHOLOGY RPT PROCEDURE Name: JULIAN MUÑIZ Room #: 243-P ADM IN M.R.#: [id number] Admission: 10/22/18 Date of : 64 Discharge: Report #: [id number] Path Case #: [id number] Note [facility] Accession Number: [id number] TESTS RESULT FLAG UNITS REF RANGE LAB Clinician Provided Cytology Information No. of containers..01 Other (Miscellaneous) Source: 01 BRONCHIAL WASHING DIAGNOSIS: 02 BRONCHIAL WASHING NEGATIVE FOR MALIGNANT CELLS. REACTIVE BRONCHIAL CELLS ARE PRESENT. PULMONARY MACROPHAGES (DUST CELLS) ARE PRESENT. REACTIVE SQUAMOUS CELLS ARE PRESENT. MARKED ACUTE INFLAMMATION. Signed out by: Mar Damon MD, Pathologist NPI- [id number] Performed by: Georgie Jason, Ply Bander ([facility]) Gross description: 01 7ML, COLORLESS, CLOUDY /LCS FLAG LEGEND: L-Low Normal,H-High Normal,LL-Alert Low,HH-Alert High <-Panic Low,>-Panic High,A-Abnormal,AA-Critical Abnormal Performed at: [address] [place] [address] Christopher Benjamin MD, [address] [address] Mar Damon MD, Specimen Comment: A courtesy copy of this report has been sent to Specimen Comment: [phone]. Specimen Comment: Report sent to Specimen Comment: A duplicate report has been generated due to demographic updates. Performed at: [address], [place], [place] [id number] MD Christopher Benjamin MD Phone: [phone]
--- NOTE | 2018-10-25 16:02 | NUR ---
POSSIBLE DC TO LT[facility] SAT OR SUN. GILMA FROM [facility] HERE TO [facility] AND PT ACCEPTED FOR ADMIT AND CAN COME SAT OR SUN IF READY. CONTACT EMILIANO FROM [facility] AT [phone] TO COORDINATE DC. # FOR REPORT [phone] AND FAX DC ORDERS TO [phone]. CHART COPIED. SPOKE WITH PT'S MOTHER ALEXANDRO ABOUT POSSIBLE W/E DC TO [facility] AND SHE IS AGREEBLE AND [facility] PHONE # PROVIDED TO HER. PT WILL NEED TO TRAVEL BY AMBULANCE.
--- NOTE | 2018-10-25 18:24 | NUR ---
END OF SHIFT NOTE. PT TO GO TO [facility] THIS WEEKEND. VSS. SMALL AMT OUT OF RECTAL TUBE. VSS NO COMLAINTS OF PAIN. REMAINS PM APRV ON BIPAP AT 60%. LUNGS LESS COARSE TODAY.
[2018-10-26] VITALS (42 sets, daily range): BP systolic 99–202; BP diastolic 50–120
[2018-10-26 04:55] LABS: BASOPHILS 0.6 % (0.0-2.0); EOSINOPHILS 3.9 % (0.0-3.0); HEMATOCRIT 29.1 % (42.0-52.0); HEMOGLOBIN 9.8 gm/dL (14.0-18.0); LYMPHOCYTES 17.9 % (24.0-44.0); MCH 31.1 pg (26.0-34.0); MCHC 33.5 g/dL (28.0-37.0); MCV 93.1 fL (80.0-100.0); MONOCYTES 5.4 % (1.0-8.0); PLATELET COUNT 191 thou/uL (150-400); POLYS 72.2 % (36.0-66.0); RBC 3.13 mil/uL (4.50-6.00); RDW 14.2 % (10.5-14.5)
[2018-10-26 05:09] LABS: CALCIUM 8.2 mg/dL (8.5-10.1); CREATININE 0.6 mg/dL (0.7-1.3); POTASSIUM 3.8 mmol/L (3.5-5.1)
--- NOTE | 2018-10-26 07:00 | NUR ---
ASSUMED CARE OF PT AT 1900. NO CHANGE IN PT CONDITION OVERNIGHT. PT CALM AND COOPERATIVE, DENIED ANY PAIN. POTASSIUM RECHECKED AND WITHIN NORMAL RANGE, NO FURTHER REPLACEMENT WAS REQUIRED. PT'S ABD REMAINS DISTENDED AND FIRM. PT HAS HYPERACTIVE BOWEL SOUNDS AND DENIES ANY NAUSEA OR ABD PAIN/DISCOMFORT. FECAL MANAGMENT SYSTEM HAD 300 CC OF LIQUID STOOL AND BAG FILLED WITH AIR/GAS. PT TO D/C TO [facility] THIS WEEKEND. ASSESSMENTS AND VITALS DOCUMENTED. WILL CONTINUE TO MONITOR.
--- NOTE | 2018-10-26 15:41 | NUR ---
PT CONT ON AVAPS MODE ON BIPAP. IV FLUIDS D/C'D. VSS. PLAN FOR POSSIBLE D/C TOMORROW TO [facility]
[2018-10-27] VITALS (22 sets, daily range): BP systolic 88–151; BP diastolic 43–90
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
[2018-10-27 05:15] LABS: HEMOGLOBIN 10.1 gm/dL (14.0-18.0); MCH 31.4 pg (26.0-34.0); MCHC 33.6 g/dL (28.0-37.0); MCV 93.4 fL (80.0-100.0); RBC 3.21 mil/uL (4.50-6.00); RDW 14.3 % (10.5-14.5); WBC 7.4 thou/uL (4.0-11.0)
[2018-10-27 05:21] LABS: CALCIUM 8.6 mg/dL (8.5-10.1); CREATININE 0.7 mg/dL (0.7-1.3); MAGNESIUM 1.7 mg/dL (1.8-2.4); POTASSIUM 3.6 mmol/L (3.5-5.1)
[2018-10-27] MEDS ORDERED: ACCUNEB SO1.25 MG/1 INH (10:00)
[2018-10-27] MEDS ORDERED: PULMICORT0.5 MG/21 INH (10:00)
[2018-10-27] MEDS ORDERED: IPRAT-ALBUT 0.5-3 ML INH (10:00)
[2018-10-27] MEDS ORDERED: OMEPRAZOLE 20 M20 M1 PER TUBE (10:00)
[2018-10-27] MEDS ORDERED: MORPHINE SU4 MG/1 M1 IV PUSH (10:00)
[2018-10-27] MEDS ORDERED: BANOPHEN12.5 MG/1 PER TUBE (10:00)
[2018-10-27] MEDS ORDERED: WATER10 ML INJECTION (10:00)
[2018-10-27] MEDS ORDERED: CATHFLO ACT2 MG/VIA1 IV PUSH (10:00)
[2018-10-27] MEDS ORDERED: BACLOFEN 10MG T10 MG PER TUBE (10:00)
[2018-10-27] MEDS ORDERED: ACETYLCYST200 MG/1 M INH (10:00)
[2018-10-27] MEDS ORDERED: CARDIZEM30 MG PER TUBE (10:00)
[2018-10-27] MEDS ORDERED: ONDANSETRON HCL4 M1 IV PUSH (10:00)
--- NOTE | 2018-10-27 13:51 | NUR ---
PT TRANSFERRING TO [facility] TODAY. TRANSPORT TIME OF 1400. REPORT CALLED TO PRACHI AT [facility].
--- NOTE | 2018-10-27 15:19 | NUR ---
pt transfered [facility] via ambulance. No belongings. VSS.
--- NOTE | 2018-10-27 16:13 | NUR ---
ASSUMED CARE AT 0700. PT ALERT AND ORIENTATED. PT HAS TRACH AND IS CURRENTLY NEEDING VENTILATOR SUPPORT IN AVAPS MODE. PT NODS HEAD YES OR NO TO SIMPLE QUESTIONS. PT IS QUADRAPELEGIC. PT IS A Q2 HOUR TURN. PT HAS TUBE FEEDING GOING AT 65CC/HR WITH ZERO RESIDUALS. PT HAS UROSTOMY THAT HAS BAIN BAG ATTACHED TO DEPENDENT DRAINAGE. PT HAS FECAL MANAGEMENT TUBE IN PLACE FOR LIQUID BROWN STOOLS. PT HAD FULL BATH AT SHIFT CHANGE.
== END 2018-10-27 15:10 | DRG 177 ==
LOC: ER 08:53 → ICU 11:19 → EROBS 11:19 → ICU 14:25
PROVIDERS: Emergency Medicine; Internal Medicine; Internal Medicine Pulmonary Disease; Nurse Practitioner; Pediatrics; ADMIT Hospitalist
PROC: 5A09357 Assistance with Respiratory Ventilation, Less than 24 Consecutive Hours, Continuous Positive Airway Pressure (ICD-10-PCS; principal; 2018-10-22)
PROC: 0B9F8ZX Drainage of Right Lower Lung Lobe, Via Natural or Artificial Opening Endoscopic, Diagnostic (ICD-10-PCS; 2018-10-23)
PROC: 5A09357 Assistance with Respiratory Ventilation, Less than 24 Consecutive Hours, Continuous Positive Airway Pressure (ICD-10-PCS; 2018-10-23)
PROC: 0D20XUZ Change Feeding Device in Upper Intestinal Tract, External Approach (ICD-10-PCS; 2018-10-23)
PROC: 0DJ08ZZ Inspection of Upper Intestinal Tract, Via Natural or Artificial Opening Endoscopic (ICD-10-PCS; 2018-10-23)
PROC: 5A09357 Assistance with Respiratory Ventilation, Less than 24 Consecutive Hours, Continuous Positive Airway Pressure (ICD-10-PCS; 2018-10-24)
PROC: 5A09357 Assistance with Respiratory Ventilation, Less than 24 Consecutive Hours, Continuous Positive Airway Pressure (ICD-10-PCS; 2018-10-25)
PROC: 5A09357 Assistance with Respiratory Ventilation, Less than 24 Consecutive Hours, Continuous Positive Airway Pressure (ICD-10-PCS; 2018-10-26)
PROC: 5A09357 Assistance with Respiratory Ventilation, Less than 24 Consecutive Hours, Continuous Positive Airway Pressure (ICD-10-PCS; 2018-10-27)
DX: J69.0 Pneumonitis due to inhalation of food and vomit (principal); G82.50 Quadriplegia, unspecified; J96.21 Acute and chronic respiratory failure with hypoxia; J96.22 Acute and chronic respiratory failure with hypercapnia; K22.11 Ulcer of esophagus with bleeding; R57.8 Other shock; K94.23 Gastrostomy malfunction; K31.1 Adult hypertrophic pyloric stenosis; D62 Acute posthemorrhagic anemia; J90 Pleural effusion, not elsewhere classified; G93.40 Encephalopathy, unspecified; G47.00 Insomnia, unspecified; K21.9 Gastro-esophageal reflux disease without esophagitis; I95.89 Other hypotension; R13.10 Dysphagia, unspecified; D64.9 Anemia, unspecified; R14.0 Abdominal distension (gaseous); F32.9 Major depressive disorder, single episode, unspecified; G40.909 Epilepsy, unspecified, not intractable, without status epilepticus; R33.9 Retention of urine, unspecified; Y83.8 Other surgical procedures as the cause of abnormal reaction of the patient, or of later complication, without mention of misadventure at the time of the procedure; R15.9 Full incontinence of feces; Z86.73 Personal history of transient ischemic attack (TIA), and cerebral infarction without residual deficits; Z87.828 Personal history of other (healed) physical injury and trauma; Z87.891 Personal history of nicotine dependence; Y92.89 Other specified places as the place of occurrence of the external cause; Z79.82 Long term (current) use of aspirin; Z79.899 Other long term (current) drug therapy; V89.2XXA Person injured in unspecified motor-vehicle accident, traffic, initial encounter; Y93.89 Activity, other specified; Y99.8 Other external cause status
CPT/HCPCS: 10078

== ENCOUNTER 2018-11-23 23:33 | Emergency (ER) | payer OTHER ==
[~2018-11-23] VITALS: Ht 182.9 cm; Wt 90.7 kg
[~2018-11-23 23:33] MED LIST changes: +ACCUNEB SO1.25 MG/1 INH; +ACETYLCYST200 MG/1 M INH; +BANOPHEN12.5 MG/1 PER TUBE; +CATHFLO ACT2 MG/VIA1 IV PUSH; +CELEXA10 MG PO; +IPRAT-ALBUT 0.5-3 ML INH; +MORPHINE SU4 MG/1 M1 IV PUSH; +OMEPRAZOLE 20 M20 M1 PER TUBE; +ONDANSETRON HCL4 M1 IV PUSH; +PULMICORT0.5 MG/21 INH; +WATER10 ML INJECTION
== END 2018-11-23 23:35 ==
LOC: ER 23:33
DX: I46.9 Cardiac arrest, cause unspecified (principal); J96.90 Respiratory failure, unspecified, unspecified whether with hypoxia or hypercapnia; F32.9 Major depressive disorder, single episode, unspecified; G47.00 Insomnia, unspecified; K21.9 Gastro-esophageal reflux disease without esophagitis; Z87.891 Personal history of nicotine dependence